=== PATIENT | female | born 2000 | race American Indian/Alaskan Native ===

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

== ENCOUNTER 2020-03-29 19:43 | Emergency (ER) | payer MEDICARE, MEDICAID ==
[2020-03-29 20:27] VITALS: BP 124/90
[2020-03-29 20:51] LABS: Basophils % (Auto) 0.4 % (0.0-1.8); Eosinophils % (Auto) 0.1 % (0.0-4.3); Hematocrit 43.9 % (30.3-42.9); Hemoglobin 14.4 gm/dl (10.1-14.3); Lymphocytes # (Auto) 1.4 K/mm3 (1.2-5.4); Lymphocytes % (Auto) 12.9 % (13.4-35.0); Mean Corpuscular HGB Conc 33 % (30-34); Mean Corpuscular Volume 85 fl (79-97); Monocytes # (Auto) 0.5 K/mm3 (0.0-0.8); Monocytes % (Auto) 4.4 % (0.0-7.3); Platelet Count 270 K/mm3 (140-440); Red Blood Count 5.18 M/mm3 (3.65-5.03); Red Cell Distribution Width 14.1 % (13.2-15.2)
[2020-03-29 21:31] LABS: Blood Urea Nitrogen 10 mg/dL (7-17); Hemolysis Index 5
[2020-03-29 21:33] LABS: BUN/Creatinine Ratio 17
--- NOTE | 2020-03-29 21:44 | Ultrasound Report ---
ULTRASOUND OBSTETRIC INDICATION / CLINICAL INFORMATION: abdominal pain. TECHNIQUE: Transabdominal. COMPARISON: None available. FINDINGS: GESTATIONAL SAC: Well-defined oval shape and intrauterine in location. YOLK SAC: No significant abnormality. EMBRYO/FETUS: No significant abnormality. - Huntley-Rump Length = 2.2 cm = 8 weeks, 6 day(s). - Heart Rate, beats per minute (if present) = 181 ADNEXA: Neither ovary visualized secondary to bowel gas. Transvaginal images not performed FREE FLUID: None. ADDITIONAL FINDINGS: None. IMPRESSION: 1. Single, living intrauterine with estimated sonographic age of 8 weeks, 6 day(s). Signer Name: Mateus Coleman MD Signed: 03/29/2020 9:40 PM Workstation Name: [email or web address]
[2020-03-29 23:03] LABS: Bacteria,Urine 1+ /HPF (Negative); Bilirubin,Urine NEG (Negative); Blood,Urine NEG (Negative); Color,Urine Amber (Yellow); Mucus,Urine 3+ /HPF
[2020-03-30] MEDS ORDERED: ONDANSETRON 4 MG/2 ML INJ IV ONE (03:03)
[2020-03-30] MEDS ORDERED: SODIUM CHLORIDE 0.9% 1000 ML 1,000 ML IV ONE ×2 (03:03)
--- NOTE | 2020-03-30 03:10 | Emergency Department Report ---
ED N/V/D HPI - General Chief complaint: Abdominal Pain Stated complaint: VOMITING X 5 DAYS Time Seen by Provider: 03/30/20 02:47 Source: patient Mode of arrival: Stretcher Limitations: No Limitations - History of Present Illness Initial comments: CC: "I have not kept anything down for 5 days. HPI: This is a 20 yo female with history of asthma who presents with vomiting for 5 days. She denies pain. She feels dehydrated. She has not yet obtained obsetrical care. She denies abdominal pain, vaginal bleeding. NO chest pain. No fever. MD complaint: nausea, vomiting -: Gradual, days(s) (5) Description of Vomiting: food contents Associated Abdominal Pain: No Severity: moderate Consistency: constant Improves with: none Worsens with: none Context: other () Associated Symptoms: denies other symptoms - Related Data Previous Rx's Medication Instructions Recorded Last Taken Type Cyclobenzaprine HCl [Flexeril 5mg] 5 mg PO TID #15 tablet 01/26/14 Unknown Rx HYDROcodone/APAP 5-325 [[place] 1 each PO Q6HR PRN #20 tablet 01/26/14 Unknown Rx 5/325] Ibuprofen [Motrin] 600 mg PO Q8H PRN #30 tablet 01/26/14 Unknown Rx Albuterol Mdi (or & Nicu Only) 2 puff IH QID PRN #1 inhalation 05/15/15 Unknown Rx [ProAir HFA Inhaler] predniSONE [Deltasone] 20 mg PO QDAY 4 Days tab 05/15/15 Unknown Rx Sulfamethoxazole/Trimethoprim 1 each PO BID #14 tablet 04/27/17 Unknown Rx [Bactrim DS TAB] metroNIDAZOLE [Flagyl] 500 mg PO Q12HR #14 tab 04/27/17 Unknown Rx Promethazine [Phenergan] 25 mg PO Q6HR PRN #20 tab 03/30/20 Unknown Rx Allergies Allergy/AdvReac Type Severity Reaction Status Date / Time No Known Allergies Allergy Verified 01/26/14 10:43 ED Review of Systems ROS: Stated complaint: VOMITING X 5 DAYS Other details as noted in HPI Comment: All other systems reviewed and negative Constitutional: denies: fever, malaise Respiratory: denies: cough, shortness of breath Cardiovascular: denies: chest pain Gastrointestinal: nausea, vomiting. denies: abdominal pain, diarrhea ED Past Medical Hx - Past Medical History Previous Medical History?: Yes Hx Asthma: Yes - Surgical History Past Surgical History?: No - Social History Smoking Status: Current Every Day Smoker Substance Use Type: Alcohol - Medications Home Medications: Home Medications Medication Instructions Recorded Confirmed Last Taken Type Cyclobenzaprine HCl [Flexeril 5mg] 5 mg PO TID #15 tablet 01/26/14 Unknown Rx HYDROcodone/APAP 5-325 [[place] 1 each PO Q6HR PRN #20 tablet 01/26/14 Unknown Rx 5/325] Ibuprofen [Motrin] 600 mg PO Q8H PRN #30 tablet 01/26/14 Unknown Rx Albuterol Mdi (or & Nicu Only) 2 puff IH QID PRN #1 inhalation 05/15/15 Unknown Rx [ProAir HFA Inhaler] predniSONE [Deltasone] 20 mg PO QDAY 4 Days tab 05/15/15 Unknown Rx Sulfamethoxazole/Trimethoprim 1 each PO BID #14 tablet 04/27/17 Unknown Rx [Bactrim DS TAB] metroNIDAZOLE [Flagyl] 500 mg PO Q12HR #14 tab 04/27/17 Unknown Rx Promethazine [Phenergan] 25 mg PO Q6HR PRN #20 tab 03/30/20 Unknown Rx ED Physical Exam - General Limitations: No Limitations General appearance: alert, in no apparent distress, other (Actively vomiting into emesis bag) - Head Head exam: Present: atraumatic, normocephalic - Eye Eye exam: Present: normal appearance - ENT ENT exam: Present: mucous membranes moist - Neck Neck exam: Present: normal inspection, full ROM - Respiratory Respiratory exam: Present: normal lung sounds bilaterally. Absent: respiratory distress, wheezes, rales, rhonchi - Cardiovascular Cardiovascular Exam: Present: regular rate, normal rhythm, normal heart sounds. Absent: systolic murmur, diastolic murmur, rubs, gallop - GI/Abdominal GI/Abdominal exam: Present: soft, normal bowel sounds. Absent: distended, tenderness, guarding, rebound - Extremities Exam Extremities exam: Present: normal inspection - Neurological Exam Neurological exam: Present: alert, oriented X3 - Psychiatric Psychiatric exam: Present: normal affect, normal mood - Skin Skin exam: Present: warm, dry, intact, normal color. Absent: rash ED Course Vital Signs 03/29/20 20:25 Temperature 97.9 F Pulse Rate 93 H Respiratory 18 Rate Blood Pressure 124/90 O2 Sat by Pulse 100 Oximetry ED Medical Decision Making - Lab Data Result diagrams: 03/29/20 20:31 03/29/20 20:31 Laboratory Results - last 24 hr 03/29/20 03/29/20 03/29/20 20:31 20:31 20:31 WBC 10.9 RBC 5.18 H Hgb 14.4 H Hct 43.9 H MCV 85 MCH 28 MCHC 33 RDW 14.1 Plt Count 270 Lymph % (Auto) 12.9 L [place] % (Auto) 4.4 Eos % (Auto) 0.1 Baso % (Auto) 0.4 Lymph # 1.4 [place] # 0.5 Eos # 0.0 Baso # 0.0 Seg Neutrophils % 82.2 H Seg Neutrophils # 8.9 H Sodium 136 L Potassium 3.3 L Chloride 98.6 Carbon Dioxide 19 L Anion Gap 22 BUN 10 Creatinine 0.6 Estimated GFR > 60 BUN/Creatinine Ratio 17 Glucose 101 H Calcium 10.0 HCG, Quant [id number] H Urine Color Urine Turbidity Urine pH Ur Specific [place] Urine Protein Urine Glucose (UA) Urine Ketones Urine Blood Urine Nitrite Urine Bilirubin Urine Urobilinogen Ur Leukocyte Esterase Urine WBC (Auto) Urine RBC (Auto) U Epithel Cells (Auto) Urine Bacteria (Auto) Urine Mucus 03/29/20 Unknown WBC RBC Hgb Hct MCV MCH MCHC RDW Plt Count Lymph % (Auto) [place] % (Auto) Eos % (Auto) Baso % (Auto) Lymph # [place] # Eos # Baso # Seg Neutrophils % Seg Neutrophils # Sodium Potassium Chloride Carbon Dioxide Anion Gap BUN Creatinine Estimated GFR BUN/Creatinine Ratio Glucose Calcium HCG, Quant Urine Color [place] Urine Turbidity Slightly-cloudy Urine pH 6.0 Ur Specific [place] 1.033 H Urine Protein 100 mg/dl Urine Glucose (UA) Neg Urine Ketones 80 Urine Blood Neg Urine Nitrite Neg Urine Bilirubin Neg Urine Urobilinogen 4.0 Ur Leukocyte Esterase Mod Urine WBC (Auto) 22.0 H Urine RBC (Auto) 27.0 U Epithel Cells (Auto) 29.0 H Urine Bacteria (Auto) 1+ Urine Mucus 3+ - Radiology Data Radiology results: report reviewed RIGHT SHOULDER 2 VIEWS INDICATION / CLINICAL INFORMATION: right shoulder pain COMPARISON: None available. FINDINGS: BONES / JOINT(S): No acute fracture. Chronic Hill-Sachs deformity. Mild inferior subluxation of the humeral head likely due to joint effusion. SOFT TISSUES: No significant abnormality. ADDITIONAL FINDINGS: None. - Medical Decision Making Hyperemesis gravidarum: Elevated H&H in metabolic derangement in chemistry reveals volume contraction. Patient was treated with IV fluid rehydration 2 L total normal saline. Patient was given IV antiemetic. Urinalysis revealed ketonuria. Ultrasound reveals single viable IUP, estimated gestational age per ultrasound 8 weeks 6 days I have prescribed patient promethazine. Discharged home. Critical care attestation.: If time is entered above; I have spent that time in minutes in the direct care of this critically ill patient, excluding procedure time. ED Disposition Clinical Impression: Hyperemesis gravidarum, First trimester Disposition: - TO HOME OR SELFCARE Is pt being admited?: No Does the pt Need Aspirin: No Condition: Stable Instructions: Hyperemesis Gravidarum (ED) Prescriptions: Promethazine [Phenergan] 25 mg PO Q6HR PRN #20 tab PRN Reason: Nausea Referrals: WENDI GALAVIZ MD [Staff Physician] - 3-5 Days
== END 2020-03-30 06:20 | disposition home or self-care (01) ==
LOC: ED 19:43
DX: O21.0 Mild hyperemesis gravidarum (principal); J45.909 Unspecified asthma, uncomplicated; Z79.899 Other long term (current) drug therapy; Z3A.01 Less than 8 weeks gestation of pregnancy; F17.200 Nicotine dependence, unspecified, uncomplicated
CPT/HCPCS: 36415; 76801; 80048; 81001; 84702; 85025; 87086; 96361; 96374; 99284; J2405; J7030; 76802

== ENCOUNTER 2020-07-15 12:02 | Outpatient (CLI) | payer MEDICARE ==
[2020-07-15 16:12] LABS: Bacteria,Urine 4+ /HPF (Negative); Bilirubin,Urine NEG (Negative); Blood,Urine SM (Negative); Color,Urine Amber (Yellow); Mucus,Urine 3+ /HPF; Urobilinogen,Urine < 2.0 mg/dL (<2.0)
[2020-07-15 16:14] LABS: Protein,Urine >500 mg/dL (Negative); WBC,Urine > 182.0 /HPF (0.0-6.0)
[2020-07-15 16:17] LABS: Amphetamine Screen,Urine Negative; Benzodiazepines Screen,Urine Negative; Cannabinoid Screen,Urine Negative; Methadone Screen,Urine Negative; Opiate Screen,Urine Negative
[2020-07-15 17:06] LABS: Cocaine Screen,Urine Negative
[2020-07-15] MEDS: LACTATED RINGERS 1,000 ML IV SCH ×2 (17:47→18:18)
[2020-07-15] MEDS ORDERED: ONDANSETRON 4 MG/2 ML INJ IV ONE (18:00)
[2020-07-15] MEDS ORDERED: PROMETHAZINE 25 MG RECT SUPP PR ONE (18:23)
[2020-07-15 18:39] VITALS: BP 110/55
== END 2020-07-15 19:41 | disposition home or self-care (01) ==
LOC: ED 12:02 → EDSTATUS 14:20 → APU 14:28 → TRG 14:28
PROVIDERS: ATTEND Obstetrics & Gynecology
DX: O21.2 Late vomiting of pregnancy (principal); O26.893 Other specified pregnancy related conditions, third trimester; M54.9 Dorsalgia, unspecified; R10.9 Unspecified abdominal pain; O99.322 Drug use complicating pregnancy, second trimester; F12.90 Cannabis use, unspecified, uncomplicated; Z3A.23 23 weeks gestation of pregnancy; Z87.891 Personal history of nicotine dependence
CPT/HCPCS: 59025; 80307; 81001; 96361; 96365; J2405; J7120; 96360; 96374

== ENCOUNTER 2020-08-12 09:19 | Outpatient (CLI) | payer MEDICARE ==
[2020-08-12] MEDS ORDERED: LACTATED RINGERS 500 ML IV ONE (09:47)
[2020-08-12 11:24] VITALS: BP 117/72
== END 2020-08-12 12:01 | disposition home or self-care (01) ==
LOC: TRG 09:19 → APU 09:21 → TRG 12:01
PROVIDERS: ATTEND Obstetrics & Gynecology
DX: O26.892 Other specified pregnancy related conditions, second trimester (principal); R11.2 Nausea with vomiting, unspecified; Z3A.27 27 weeks gestation of pregnancy
CPT/HCPCS: 59025

== ENCOUNTER 2020-10-23 10:26 | Inpatient (IN) | payer MEDICARE ==
[2020-10-23] MEDS ORDERED: OXYTOCIN DRIP 30 UNITS/500 ML BAG IV SCH (10:30)
[2020-10-23] MEDS ORDERED: OXYTOCIN DRIP 30,000 MILLIUNITS/500 ML BAG IV ONE (10:35)
--- NOTE | 2020-10-23 11:18 | History and Physical Report ---
History of Present Illness Date of examination: 10/23/20 (home delivery; retained placenta) Date of admission: 10/23/20 10:27 History of present illness: ctx started this AM "I just went too fast." Pt states she was getting PNC with Dr Hinson @ [facility]. Could not when she saw her last Denies any medical or surgical hx. Denies ETOH,Smoking, drug use. Pt does admit to having untreated Trich. 1. 5--20 girl @ 38w QUICK [facility] Denies any complications Past History - Obstetrical History Expected Date of Delivery: 11/06/20 Actual Gestation: 38 Week(s) 0 Day(s) : 2 Para: 1 Hx # Term Pregnancies: 1 Number of Pregnancies: 0 Spontaneous Abortions: 0 Induced : 0 Number of Living Children: 1 Medications and Allergies Allergies Allergy/AdvReac Type Severity Reaction Status Date / Time No Known Allergies Allergy Verified 01/26/14 10:43 Home Medications Medication Instructions Recorded Confirmed Last Taken Type Cyclobenzaprine HCl [Flexeril 5mg] 5 mg PO TID #15 tablet 01/26/14 Unknown Rx HYDROcodone/APAP 5-325 [[place] 1 each PO Q6HR PRN #20 tablet 01/26/14 Unknown Rx 5/325] Ibuprofen [Motrin] 600 mg PO Q8H PRN #30 tablet 01/26/14 Unknown Rx Albuterol Mdi (or & Nicu Only) 2 puff IH QID PRN #1 inhalation 05/15/15 Unknown Rx [ProAir HFA Inhaler] predniSONE [Deltasone] 20 mg PO QDAY 4 Days tab 05/15/15 Unknown Rx Sulfamethoxazole/Trimethoprim 1 each PO BID #14 tablet 04/27/17 Unknown Rx [Bactrim DS TAB] metroNIDAZOLE [Flagyl] 500 mg PO Q12HR #14 tab 04/27/17 Unknown Rx Promethazine [Phenergan] 25 mg PO Q6HR PRN #20 tab 03/30/20 Unknown Rx Nitrofurantoin [place]/M-[place]ryst 100 mg PO Q12HR #14 capsule 07/15/20 Unknown Rx [Macrobid CAP] Ondansetron [Zofran Odt] 4 mg PO Q8HR #60 tab.rapdis 07/15/20 Unknown Rx Promethazine HCl [Phenergan SUPPOS] 25 mg RC Q6H PRN #6 supp.rect 07/15/20 Unknown Rx Review of Systems All systems: negative - Vital Signs Vital signs: Vital Signs Pulse BP 64 149/89 10/23/20 10:33 10/23/20 10:33 Temp Pulse Resp BP Pulse Ox 80 130/83 10/23/20 11:14 10/23/20 11:14 - Physical Exam Breasts: Cardiovascular: Regular rate, Normal S1, Normal S2 Abdomen: Positive: normal appearance, soft, normal bowel sounds. Negative: distention, tenderness Genitourinary (Female): Positive: normal external genitalia Vulva: both: normal Vagina: Positive: normal moisture. Negative: discharge Cervix: Negative: lesion, discharge Uterus: Positive: normal size, normal contour Adnexa: both: normal Anus/Rectum: Positive: normal perianal skin, heme negative. Negative: rectal mass, hemorrhoids Extremities: Deep Tendon Reflex Grade: Normal +2 Results All other labs normal. OB labs drawn Assessment and Plan 20yo now Home delivery @ 38w All OB orders in EMR. Trich+ IV Flagyl ordered. - Patient Problems (1) Trichomonal vaginitis during Onset Date: ~10/23/20 Current Visit: Yes Status: Acute Qualifiers: Trimester: third trimester Qualified Code(s): O23.593 - Infection of other part of genital tract in , third trimester; A59.01 - Trichomonal vulvovaginitis Plan to address problem: Pt confessed to untreated trich at admission Flagyl 500 IVPB ordered (2) Vaginal delivery Onset Date: ~10/23/20 Current Visit: Yes Status: Acute Plan to address problem: Pt states she started ctx during the night and then the baby came. Called 911 Baby born alive Denies any complications with . Placenta remained in tact on my arrival to L&D
--- NOTE | 2020-10-23 11:38 | Procedure Note ---
OB Delivery Note - Delivery Date of Delivery: 10/23/20 (baby delivered @ home) It Support Manager: VEL CARMICHAEL Estimated blood loss: 300cc - Vaginal Delivery presentation: vertex Delivery induction: none Delivery monitor: none Route of delivery: Delivery placenta: spontaneous Delivery cord: 3 umbilical vessels Episiotomy: none Delivery laceration: none Anesthesia: none Delivery comments: Pt arrived by EMS delivered. Cord clamped and cut by RN. Placenta remained intact on my arrival. Easily expressed. IVF Pitocin started. EBL 300, Wgt 5-8, 8/9. Mom and baby remain LDR stable - A at 1 minute: 8 at 5 minutes: 9 Infant Gender: Female (wgt 5-8)
[2020-10-23] MEDS ORDERED: LANOLIN/ZINC/DIMETHICONE (LANSINOH) 7 GM TP PRN (11:49)
[2020-10-23] MEDS ORDERED: diphenhydrAMINE 25 MG CAP PO PRN (11:49)
[2020-10-23] MEDS ORDERED: WITCH HAZEL/ GLYCERIN PAD TP PRN (11:49)
[2020-10-23] MEDS ORDERED: MAGNESIUM HYDROXIDE (MOM) ORAL LIQD UDC PO PRN (11:49)
[2020-10-23] MEDS ORDERED: IBUPROFEN 600 MG TAB PO SCH (12:00)
[2020-10-23] MEDS ORDERED: ePHEDrine SULFATE 50 MG/1 ML INJ IV PRN (12:00)
[2020-10-23] MEDS ORDERED: LACTATED RINGERS 1,000 ML IV SCH (12:00)
[2020-10-23] MEDS ORDERED: ONDANSETRON 4 MG/2 ML INJ IV PRN (12:00)
[2020-10-23] MEDS ORDERED: metroNIDAZOLE/NS 500 MG/100 ML 500 MG/100 ML BAG IV SCH (12:00)
[2020-10-23 12:33] LABS: Bacteria,Urine 1+ /HPF (Negative); Bilirubin,Urine NEG (Negative); Blood,Urine NEG (Negative); Color,Urine Yellow (Yellow); Mucus,Urine FEW /HPF; Urobilinogen,Urine < 2.0 mg/dL (<2.0)
[2020-10-23 12:41] LABS: Amphetamine Screen,Urine Negative; Benzodiazepines Screen,Urine Negative; Cocaine Screen,Urine Negative; Methadone Screen,Urine Negative; Opiate Screen,Urine Negative
[2020-10-23 12:48] LABS: Basophils % (Auto) 0.3 % (0.0-1.8); Hematocrit 36.2 % (30.3-42.9); Hemoglobin 11.4 gm/dl (10.1-14.3); Lymphocytes # (Auto) 1.3 K/mm3 (1.2-5.4); Lymphocytes % (Auto) 10.2 % (13.4-35.0); Mean Corpuscular HGB Conc 31 % (30-34); Mean Corpuscular Volume 83 fl (79-97); Monocytes # (Auto) 0.3 K/mm3 (0.0-0.8); Monocytes % (Auto) 2.1 % (0.0-7.3); Platelet Count 229 K/mm3 (140-440); Red Blood Count 4.37 M/mm3 (3.65-5.03); Red Cell Distribution Width 15.5 % (13.2-15.2)
[2020-10-23 12:56] LABS: Hepatitis C Virus Antibody Non-Reactive (NonReactive)
[2020-10-23 13:07] LABS: Cannabinoid Screen,Urine PRESUMPTIVE POSITIVE
[2020-10-23] MEDS: PROMETHAZINE 25 MG TAB PO PRN (15:00)
[2020-10-24] MEDS: PROMETHAZINE 25 MG TAB PO PRN ×2 (00:34→11:10)
[2020-10-24 01:27] LABS: Hematocrit 35.7 % (30.3-42.9); Hemoglobin 11.3 gm/dl (10.1-14.3)
[2020-10-24] MEDS ORDERED: MEASLES, MUMPS & RUBELLA 12,500 UNIT/0.5 ML VACCINE SUB-Q ONE (06:00)
[2020-10-24] MEDS ORDERED: DIPHtheria,PERTUSSIS(ACELL),TETANUS VACCINE/PF 0.5 ML VIAL IM ONE (06:00)
--- NOTE | 2020-10-24 08:18 | Discharge Summary ---
Providers - Providers Date of Admission: 10/23/20 10:27 Date of discharge: 10/24/20 (desires d/c home) Attending physician: ASH RODRÍGUEZ 10/23/20 15:38 Consult to Case Management [CONS] Routine Services Needed at Discharge: Liquor Blender Notified:: Case Management Additional Physician Instructions: limited care +MJ Primary care physician: ASH RODRÍGUEZ Hospitalization Reason for admission: delivery Condition: Good Pertinent studies: H&H 11.3/35.7 Procedures: Hospital course: precipitous and uncomplicated course Disposition: DC-01 TO HOME OR SELFCARE Final Discharge Diagnosis (Prints w/discharge instructions): Vaginal Time spent for discharge: 20 - Discharge Diagnoses (1) Vaginal delivery Status: Acute Core Measure Documentation - Palliative Care Palliative Care/ Comfort Measures: Not Applicable - Core Measures Any of the following diagnoses?: none Exam - Constitutional Vitals: Temp Pulse Resp BP Pulse Ox 98.6 F 66 18 114/78 100 10/24/20 00:00 10/24/20 00:00 10/24/20 00:00 10/24/20 00:00 10/23/20 19:50 General appearance: Present: no acute distress, well-nourished - EENT Eyes: Present: PERRL ENT: hearing intact, clear oral mucosa - Neck Neck: Present: supple, normal ROM - Respiratory Respiratory effort: normal Respiratory: bilateral: CTA - Cardiovascular Rhythm: regular - Extremities Extremities: no ischemia, No edema - Abdominal General gastrointestinal: Present: soft, non-tender, non-distended, normal bowel sounds Female genitourinary: Present: normal - Integumentary Integumentary: Present: clear, warm, dry - Musculoskeletal Musculoskeletal: gait normal, strength equal bilaterally - Psychiatric Psychiatric: appropriate mood/affect, intact judgment & insight - Neurologic Neurologic: CNII-XII intact, moves all extremities - Additional findings Additional findings: bottle feeding , lochia scant, fundus firm, desires depo Plan Activity: no restrictions Diet: regular Follow up with: ASH RODRÍGUEZ MD [Primary Care Provider] - 6 Weeks (Congratulations! Please call [phone] to schedule your visit in 6 weeks. Call for any questions or concerns.) Prescriptions: Ibuprofen [Motrin 800 MG tab] 800 mg PO Q8HR PRN #30 tablet PRN Reason: Pain
[2020-10-24] MEDS ORDERED: medroxyPROGESTERone ACETATE 150 MG/ML SYRINGE IM SCH (09:00)
[2020-10-24] MEDS ORDERED: ONDANSETRON 4 MG/2 ML INJ IV ONE (13:11)
[2020-10-24] MEDS ORDERED: PROMETHAZINE 25 MG RECT SUPP PR PRN (17:43)
[2020-10-24] MEDS ORDERED: LACTATED RINGERS 1,000 ML IV SCH (18:45)
[2020-10-24] MEDS ORDERED: cefTRIAXone/NS 1 GM/50 ML 1 GM/50 ML BAG IV ONE (20:12)
--- NOTE | 2020-10-24 20:16 | Event Note ---
Date: 10/24/20 patient is having nausea, will rehydrate and give antiemetic. UC also resulted + for gram neg rods, will treat with one time dose of ceftriaxone IVPB. nurse called and made aware of new order. Will hold d/c order until tomorrow.
[2020-10-24] MEDS ORDERED: LIDOCAINE-MPF (1%) 10 MG/1 ML VIAL 5 ML INFILTRATI ONE (20:18)
--- NOTE | 2020-10-25 12:32 | Event Note ---
Date: 10/25/20 PPD#2 at home, no complaints, desires D'provera prior to d/c home Order for D'provera and Discharge on chart
[2020-10-25] MEDS ORDERED: medroxyPROGESTERone ACETATE 150 MG/ML SYRINGE IM ONE (13:00)
[2020-10-25 13:52] VITALS: BP 116/68
== END 2020-10-25 13:10 | disposition home or self-care (01) | DRG 776 ==
LOC: TRG 10:26 → LD 10:27 → TRG 10:53 → OB 13:50
PROVIDERS: ADMIT Obstetrics & Gynecology; ATTEND Obstetrics & Gynecology
PROC: 10E0XZZ Delivery of Products of Conception, External Approach (ICD-10-PCS; principal; 2020-10-23)
PROC: 3E0234Z Introduction of Serum, Toxoid and Vaccine into Muscle, Percutaneous Approach (ICD-10-PCS; 2020-10-24)
PROC: 3E0134Z Introduction of Serum, Toxoid and Vaccine into Subcutaneous Tissue, Percutaneous Approach (ICD-10-PCS; 2020-10-24)
DX: Z39.0 Encounter for care and examination of mother immediately after delivery (principal); O98.33 Other infections with a predominantly sexual mode of transmission complicating the puerperium; A59.01 Trichomonal vulvovaginitis; Z79.899 Other long term (current) drug therapy
CPT/HCPCS: 36415; 80307; 81001; 85014; 85018; 85025; 86592; 86706; 86762; 86803; 86850; 86900; 86901; 87076; 87086; 87186; 87806; 88307; G0378; J1050; J2405; J2590; Q0169